=== PATIENT | female | born 1990 | race Caucasian/White ===

== ENCOUNTER 2018-03-05 16:09 | Emergency (ER) | payer MEDICAID ==
[~2018-03-05] VITALS: Ht 175.3 cm; Wt 120.5 kg
[2018-03-05 16:16] VITALS: BP 125/73; TEMP 97.8
[2018-03-05] MEDS ORDERED: NORCO 325 MG-51 TAB PO (17:34)
[2018-03-05] MEDS ORDERED: FLEXERIL 1010 MG/TAB PO (17:34)
[2018-03-05 17:50] VITALS: PULSE 84
== END 2018-03-05 17:50 | disposition home or self-care (01) ==
LOC: COL.ER 16:09
DX: S39.012A Strain of muscle, fascia and tendon of lower back, initial encounter (principal); X50.1XXA Overexertion from prolonged static or awkward postures, initial encounter; Y93.H1 Activity, digging, shoveling and raking
CPT/HCPCS: J1885; J2360

== ENCOUNTER 2018-06-25 18:46 | Emergency (ER) | payer MEDICAID ==
[~2018-06-25] VITALS: Ht 175.3 cm; Wt 113.6 kg
[~2018-06-25 18:46] MED LIST: FLEXERIL 1010 MG/TAB PO; NORCO 325 MG-51 TAB PO
[2018-06-25 18:56] VITALS: BP 121/59; TEMP 98.5
[2018-06-25] MEDS ORDERED: ADIPEX-P37.5 MG PO (19:36)
[2018-06-25] MEDS ORDERED: UNISOM SLEEPGEL50 MG PO (19:37)
[2018-06-25 19:55] LABS: BASO # 0.1 (0.0-0.2); BASO % 0.9 % (0.0-2.0); EOS # 0.2 (0.0-0.7); EOS % 2.9 % (0-4.0); GRAN # 3.7 (1.4-6.5); GRAN % 52.9 % (42.2-75.2); HEMATOCRIT 41.9 % (37.0-47.0); HEMOGLOBIN 13.1 g/dl (12.5-16.0); LYMPH # 2.3 (1.2-3.4); LYMPH % 33.2 % (20.0-51.0); MEAN CELL VOLUME 80 fl (80.0-100.0); MEAN CORPUSCULAR HEMOGLOBIN 25 pg (27.0-31.0); MEAN CORPUSCULAR HGB CONC 31 g/dl (33.0-37.0); MEAN PLATELET VOLUME 10.6 fl (7.4-10.4); MONO # 0.7 (0.1-0.6); PLATELET COUNT 329 K/mm3 (130-400); RED BLOOD COUNT 5.24 M/mm3 (4.10-5.30); REDCELL DISTRIBUTION WIDTH-CV 16.2 % (11.5-14.5)
[2018-06-25 20:09] LABS: ALANINE AMINOTRANSFERASE < 6 U/L (9-52); ALBUMIN 4.1 gm/dL (3.5-5.0); ALKALINE PHOSPHATASE 71 U/L (50-136); ANION GAP 10 mmol/L (7-16); AST,SGOT 19 U/L (15-37); BILIRUBIN,TOTAL 0.3 mg/dL (0.0-1.0); BLOOD UREA NITROGEN 13 mg/dL (7-17); C-REACTIVE PROTEIN 0.6 mg/dL (0.0-0.9); CALCIUM 9.6 mg/dL (8.4-10.2); CARBON DIOXIDE 26 mmol/L (22-30); CHLORIDE 106 mmol/L (98-107); CREATININE, serum 0.66 (0.52-1.25); GLUCOSE 95 mg/dL (74-106); LIPASE 46 U/L (23-300); POTASSIUM 3.6 mmol/L (3.4-5.0); SODIUM 142 mmol/L (137-145); TOTAL PROTEIN 7.6 gm/dL (6.4-8.2)
[2018-06-25] MEDS ORDERED: ZOFRAN 4MG T4 MG/TAB PO (20:28)
[2018-06-25 20:30] VITALS: PULSE 67
== END 2018-06-25 20:40 | disposition home or self-care (01) ==
LOC: COL.ER 18:46
PROVIDERS: Emergency Medicine
DX: R10.13 Epigastric pain (principal); R19.7 Diarrhea, unspecified
CPT/HCPCS: J2405; J7030

== ENCOUNTER 2020-08-16 12:54 | Emergency (ER) | payer MEDICAID ==
[~2020-08-16] VITALS: Ht 175.3 cm; Wt 106.8 kg
[~2020-08-16 12:54] MED LIST changes: +ADIPEX-P37.5 MG PO; +UNISOM SLEEPGEL50 MG PO; +ZOFRAN 4MG T4 MG/TAB PO
[2020-08-16 13:03] VITALS: BP 113/72; TEMP 98.3
[2020-08-16 13:38] LABS: COLLECTION METHOD CLEAN CATCH
[2020-08-16 13:42] LABS: BASO # 0.1 (0.0-0.2); BASO % 0.9 % (0.0-2.0); EOS # 0.2 (0.0-0.7); EOS % 1.8 % (0-4.0); GRAN # 5.8 (1.4-6.5); GRAN % 62.6 % (42.2-75.2); HEMATOCRIT 39.3 % (37.0-47.0); HEMOGLOBIN 12.4 g/dl (12.5-16.0); LYMPH # 2.5 (1.2-3.4); LYMPH % 26.7 % (20.0-51.0); MEAN CELL VOLUME 83 fl (80.0-100.0); MEAN CORPUSCULAR HEMOGLOBIN 26 pg (27.0-31.0); MEAN CORPUSCULAR HGB CONC 32 g/dl (33.0-37.0); MEAN PLATELET VOLUME 10.5 fl (7.4-10.4); MONO # 0.7 (0.1-0.6); MONO % 7.8 % (1.7-9.3); PLATELET COUNT 263 K/mm3 (130-400); RED BLOOD COUNT 4.73 M/mm3 (4.10-5.30); REDCELL DISTRIBUTION WIDTH-CV 14.2 % (11.5-14.5)
[2020-08-16 13:45] LABS: PH 6 (5-8); SQUAMOUS EPITHELIAL 0-2 /hpf; URINE APPEARANCE Clear; URINE BACTERIA None Seen /hpf; URINE BILIRUBIN Negative (NEGATIVE); URINE BLOOD Negative (NEGATIVE); URINE COLOR Colorless; URINE GLUCOSE Negative (NEGATIVE); URINE KETONE Negative (NEGATIVE); URINE LEUKOCYTE ESTERASE Negative (NEGATIVE); URINE NITRATE Negative (NEGATIVE); URINE PROTEIN(semi-quant) Negative (NEGATIVE); URINE RBC 0-2 /hpf; URINE UROBILINOGEN Negative (NEGATIVE)
[2020-08-16 13:51] LABS: ALANINE AMINOTRANSFERASE 14 U/L (4-34); ALBUMIN 4.2 gm/dL (3.5-5.0); ALKALINE PHOSPHATASE 75 U/L (50-136); ANION GAP 6 mmol/L (7-16); AST,SGOT 21 U/L (15-37); BILIRUBIN,TOTAL 0.2 mg/dL (0.0-1.0); BLOOD UREA NITROGEN 15 mg/dL (7-17); CALCIUM 9.6 mg/dL (8.4-10.2); CARBON DIOXIDE 25 mmol/L (22-30); CHLORIDE 105 mmol/L (98-107); CREATININE, serum 0.58 (0.52-1.25); GLUCOSE 96 mg/dL (74-106); POTASSIUM 3.9 mmol/L (3.4-5.0); SODIUM 136 mmol/L (137-145); TOTAL PROTEIN 7.5 gm/dL (6.4-8.2)
[2020-08-16 14:02] LABS: LIPASE 60 U/L (23-300)
[2020-08-16 14:20] LABS: C-REACTIVE PROTEIN < 0.5 mg/dL (0.0-0.9)
[2020-08-16] MEDS ORDERED: ADDERALL20 MG PO (16:31)
[2020-08-16 16:40] VITALS: PULSE 79
== END 2020-08-16 16:40 | disposition home or self-care (01) ==
LOC: COL.ER 12:54
PROVIDERS: Nurse Practitioner Primary Care
DX: R10.31 Right lower quadrant pain (principal); R10.2 Pelvic and perineal pain; F90.9 Attention-deficit hyperactivity disorder, unspecified type; Z88.8 Allergy status to other drugs, medicaments and biological substances; Z79.899 Other long term (current) drug therapy
CPT/HCPCS: J1885; J7030

== ENCOUNTER 2021-10-23 18:03 | Emergency (ER) | payer MEDICAID ==
[~2021-10-23] VITALS: Ht 175.3 cm; Wt 100.0 kg
[~2021-10-23 18:03] MED LIST changes: +ADDERALL20 MG PO
[2021-10-23] MEDS ORDERED: MOTRIN 800800 MG/TAB PO (19:19)
[2021-10-23] MEDS ORDERED: NORCO 325 MG-51 TAB PO (19:19)
[2021-10-23 19:27] VITALS: BP 118/77; PULSE 65; TEMP 98
== END 2021-10-23 19:29 | disposition home or self-care (01) ==
LOC: COL.ER 18:03
DX: S80.02XA Contusion of left knee, initial encounter (principal); M54.50 Low back pain, unspecified; W01.0XXA Fall on same level from slipping, tripping and stumbling without subsequent striking against object, initial encounter

== ENCOUNTER 2022-03-24 04:56 | Emergency (ER) | payer MEDICAID ==
[~2022-03-24] VITALS: Ht 175.3 cm; Wt 100.0 kg
[~2022-03-24 04:56] MED LIST changes: +ADDERALL XR30 MG PO; +DOXYCYCLINE 10100 MG PO; +MOTRIN 800800 MG/TAB PO; +ULTRAM 50MG TAB50 MG PO
[2022-03-24 05:02] VITALS: BP 143/85; TEMP 97.8
[2022-03-24] MEDS ORDERED: NEURONTIN300 MG/CAP PO (05:12)
[2022-03-24] MEDS ORDERED: FLEXERIL 1010 MG/TAB PO (05:12)
[2022-03-24 05:21] VITALS: PULSE 80
== END 2022-03-24 05:21 | disposition home or self-care (01) ==
LOC: COL.ER 04:56
DX: M54.41 Lumbago with sciatica, right side (principal)
CPT/HCPCS: J1885

== ENCOUNTER → 2022-05-17 | Outpatient (CLI) | payer MEDICAID ==
[~2022-05-17] MED LIST changes: +NEURONTIN300 MG/CAP PO
== END ==
LOC: MHCPAIN 09:42
DX: M51.16 Intervertebral disc disorders with radiculopathy, lumbar region (principal); M25.551 Pain in right hip; M25.552 Pain in left hip
CPT/HCPCS: G0463

== ENCOUNTER → 2022-06-25 | Outpatient (CLI) | payer MEDICAID | LOC: MHCPAIN 14:20 | DX: M47.816 Spondylosis without myelopathy or radiculopathy, lumbar region (principal); M51.16 Intervertebral disc disorders with radiculopathy, lumbar region; M54.50 Low back pain, unspecified | CPT/HCPCS: J1100; Q9967 ==

== ENCOUNTER → 2022-08-08 | Outpatient (CLI) | payer MEDICAID | LOC: COL.RAD 13:38 | DX: M54.2 Cervicalgia (principal) ==

== ENCOUNTER 2023-07-22 20:52 | Emergency (ER) | payer MEDICAID ==
[~2023-07-22] VITALS: Ht 175.3 cm; Wt 88.2 kg
[2023-07-22 20:56] VITALS: TEMP 97.9
[2023-07-22 21:18] LABS: COLLECTION METHOD CLEAN CATCH
[2023-07-22 21:26] LABS: PH 7.5 (5.0-8.5); URINE APPEARANCE CLEAR (CLEAR/HAZY); URINE BLOOD NEGATIVE (NEGATIVE); URINE COLOR YELLOW (YELLOW); URINE GLUCOSE NEGATIVE (NEGATIVE); URINE KETONE NEGATIVE (NEGATIVE); URINE NITRATE NEGATIVE (NEGATIVE); URINE PROTEIN(semi-quant) NEGATIVE (NEGATIVE)
[2023-07-22] MEDS ORDERED: Ibuprofen 400 MG TAB PO ONE (22:15)
[2023-07-22] MEDS ORDERED: Acetaminophen 325 MG TAB PO ONE (22:15)
[2023-07-23 00:05] VITALS: BP 122/76; PULSE 79
== END 2023-07-23 00:05 | disposition home or self-care (01) ==
LOC: COL.ER 20:52
PROVIDERS: Nurse Practitioner Primary Care
DX: R35.0 Frequency of micturition (principal); Z87.440 Personal history of urinary (tract) infections

== ENCOUNTER → 2023-11-07 | Outpatient (CLI) | payer SELFPAY | LOC: MHCPAIN 10:03 | DX: M54.16 Radiculopathy, lumbar region (principal); M51.26 Other intervertebral disc displacement, lumbar region; M62.830 Muscle spasm of back; Z91.81 History of falling | CPT/HCPCS: G0463 ==